=== PATIENT | female | born 1995 | race Caucasian/White ===

== ENCOUNTER 2016-06-07 22:39 | Emergency (ER) | payer SELFPAY ==
[2016-06-07] MEDS ORDERED: ALBUTEROL/IPRATROPIUM 2.5/0.5 MG 3 ML/EACH DOSE ONE (23:09)
[2016-06-07] MEDS ORDERED: LACTATED RINGERS 1,000 ML ONE (23:54)
[2016-06-08 00:13] LABS: ABSOLUTE NEUTROPHIL COUNT 12.8 K/mm3 (1.8-7.7); BASO # 0.1 K/mm3 (0.0-0.2); BASO % 0.4 % (0.2-1.0); EOS % 0.1 % (0.9-2.9); HEMATOCRIT 37.5 % (37.0-47.0); HEMOGLOBIN 12.4 gm/l (12.0-16.0); IMM NEUT # 0.1 K/mm3 (0-0.2); IMM NEUT% 0.4 % (0-1); LYMPH % 17.6 % (15-45); MEAN CELL VOLUME 92.4 fl (81.0-99.0); MEAN CORPUSCULAR HEMOGLOBIN 30.5 pg (27.0-31.0); MEAN CORPUSCULAR HGB CONC 33.1 g/dl (33.0-37.0); MEAN PLATELET VOLUME 10.3 fl (7.4-10.4); MONO # 1.1 (0.0-0.8); MONO % 6.4 % (4-12); NEUT % 75.1 % (43-75); PLATELET COUNT 305 K/mm3 (130-400); RED CELL DISTRIBUTION WIDTH 12.2 % (11.5-14.5)
[2016-06-08 00:22] LABS: ALB/GLOB RATIO 2.1 (>1.0); ALBUMIN 4.9 gm/dL (3.5-5.7); ALT/SGPT 10 U/L (7-52); BLOOD UREA NITROGEN 16 mg/dL (7-25); BUN/CREATININE RATIO 18 (6-20); CALCIUM 9.8 mg/dL (8.6-10.3)
[2016-06-08] MEDS ORDERED: PREDNISONE 20 MG TABLET ONE (01:16)
== END 2016-06-08 01:34 | disposition home or self-care (01) ==
LOC: ED 22:39
DX: J45.901 Unspecified asthma with (acute) exacerbation (principal)
CPT/HCPCS: 84703; 85025; 80053; 94640; 99283 ×2; 96360; 93005; J7512; J7120